=== PATIENT | male | born 1950 | race Caucasian/White ===

== ENCOUNTER 2022-11-23 01:49 | Emergency (ER) | payer OTHER ==
[2022-11-23 01:56] VITALS: PULSE 99; RESP 18; TEMP 97.7
[2022-11-23 02:39] LABS: Basophils # (A) 0.1 k/uL (0-0.2); Basophils % (A) 1 %; Eosinophils # (A) 0.4 k/uL (0-0.7); Eosinophils % (A) 6 %; HCT 46.3 % (39.0-53.0); HGB 15.7 gm/dL (13.0-17.5); Lymphocytes # (A) 2.2 k/uL (1.0-4.8); Lymphocytes % (A) 31 %; MCH 29.1 pg (25.0-35.0); MCHC 33.9 g/dL (31.0-37.0); MCV 85.8 fL (80.0-100.0); Mean Platelet Volume 7.1; Monocytes # (A) 0.4 k/uL (0-1.0); Monocytes % (A) 6 %; Neutrophils # (A) 3.9 k/uL (1.3-7.7); Neutrophils % (A) 53 %; Platelet Count 344 k/uL (150-450); RBC 5.39 m/uL (4.30-5.90); RDW 13.4 % (11.5-15.5); WBC 7.3 k/uL (3.8-10.6)
[2022-11-23 02:51] LABS: Albumin 3.9 g/dL (3.5-5.0); Calcium 9.1 mg/dL (8.4-10.2); Potassium 4.6 mmol/L (3.5-5.1); Total Bilirubin 0.8 mg/dL (0.2-1.3); Total Protein 6.7 g/dL (6.3-8.2)
[2022-11-23] MEDS ORDERED: hydrALAZINE HCL 20 MG/ML 1 ML VIAL IVP STA (03:06)
--- NOTE | 2022-11-23 03:24 | ED ---
General Adult HPI - General Chief complaint: Recheck/Abnormal Lab/Rx Stated complaint: HTN Time Seen by Provider: 11/23/22 02:45 Source: patient, RN notes reviewed, old records reviewed Mode of arrival: wheelchair - History of Present Illness Initial comments: Patient is a 72-year-old male who presents emergency Department complaining of hypertension, bilateral upper extremity paresthesias. Patient has been dealing with hypertension since he was seen in the ER last week. Denies any headache, chest pain. Denies any abdominal pain, nausea, vomiting. Denies any weakness. History of prior blood clot. No longer on blood thinners. Was seen last week for similar complaints and ultimately discharged home. As follow with PCP, rug inspector, vascular surgeon this week with mixed results in terms of whether he has hypertension or not. However woke up this evening with his paresthesias in bilateral upper extremities. They checked his blood pressure was elevated. Presents for further evaluation at this time. Currently resting comfortable in bed with no obvious complaints. - Related Data Home Medications Medication Instructions Recorded Confirmed [place]-3 Fatty Acids/Fish Oil [Fish 2 each PO DAILY 07/09/17 07/09/17 Oil 1,000 mg Softgel] Omeprazole [PriLOSEC] 20 mg PO AC-BRKFST 07/09/17 07/09/17 Previous Rx's Medication Instructions Recorded amLODIPine [Norvasc] 2.5 mg PO DAILY 7 Days #7 tablet 11/23/22 Allergies Allergy/AdvReac Type Severity Reaction Status Date / Time Penicillins Allergy Rash/Hives Verified 11/23/22 01:57 Review of Systems ROS Statement: Those systems with pertinent positive or pertinent negative responses have been documented in the HPI. Review of Systems: CONST: Denies fever EYES: Denies blurry vision ENT: Denies nasal congestion C/V: Denies Chest pain RESP: Denies shortness of breath GI: Denies abdominal pain : Denies dysuria SKIN: Denies rash. MSK: Denies joint pain. NEURO: Denies headache ROS Other: All systems not noted in ROS Statement are negative. Past Medical History Past Medical History: Cancer, GERD/Reflux Additional Past Medical History / Comment(s): cancer prostate 2011, recent bloody stool History of Any Multi-Drug Resistant Organisms: None Reported Past Surgical History: Appendectomy, Joint Replacement, Orthopedic Surgery, Prostate Surgery, Tonsillectomy Additional Past Surgical History / Comment(s): arthroscopy knee, deepti knees replaced, prostatectomy Past Anesthesia/Blood Transfusion Reactions: Previous Problems w/ Anesthesia, Postoperative Nausea & Vomiting (PONV) Additional Past Anesthesia/Blood Transfusion Reaction / Comment(s): O2 sats. & BP low & went to ICU after prostatectomy, always very slow to wake up, doesn't require much anes. per pt. Past Psychological History: No Psychological Hx Reported Smoking Status: Never smoker Past Alcohol Use History: None Reported Past Drug Use History: None Reported - Past Family History Father Family Medical History: Cancer General Exam - General Exam Comments Initial Comments: General: Appears in no acute distress. HEAD: Normal with no signs of head trauma. EYES: PERRLA, EOMI, conjunctiva normal, no discharge. Pupils 2 mm and equal bilaterally. ENT: Hearing grossly intact, normal oropharynx. RESPIRATORY: Clear breath sounds bilaterally. No wheezes, rales, or rhonchi. C/V: Regular rate and rhythm. S1 and S2 auscultated, no edema, peripheral pulses 2+ and intact throughout. blood pressures equal in bilateral upper extremities. ABD: Abd is soft, nontender, nondistended EXT: Normal range of motion, no obvious deformity SKIN: No rashes or lesions observed on exposed skin. NEURO: Alert and oriented x 4. Cranial nerves II-XII intact. No focal sensory or strength deficits. GCS of 15. NIH of 0. No reproducible numbness in the upper extremities. Cerebellar function within normal limits as evident by normal finger nose testing and [id number] testing. Course Vital Signs 11/23/22 11/23/22 11/23/22 01:54 03:17 05:00 Temperature 97.7 F Pulse Rate 99 Respiratory 18 Rate Blood Pressure 171/104 162/111 119/86 O2 Sat by Pulse 94 L Oximetry Medical Decision Making - Medical Decision Making Was pt. sent in by a medical professional or institution (, PA, EXTERIOR WORK HELPER, urgent care, hospital, or custodial...) When possible be specific @ -No Did you speak to anyone other than the patient for history (EMS, parent, family, police, friend...)? What history was obtained from this source @ -No Did you review nursing and triage notes (agree or disagree)? Why? @ -I reviewed and agree with nursing and triage notes Were old charts reviewed (outside hosp., previous admission, EMS record, old EKG, old radiological studies, urgent care reports/EKG's, custodial records)? Report findings @ -Review chart from 11/20/2022. Differential Diagnosis (chest pain, altered mental status, abdominal pain women, abdominal pain men, vaginal bleeding, weakness, fever, dyspnea, syncope, headache, dizziness, GI bleed, back pain, seizure, CVA, palpatations, mental health, musculoskeletal)? @ -CVA, aortic dissection, electrolyte abnormalities, symptomatic hypertension. This was is not all inclusive. EKG interpreted by me (3pts min.). @ -As above X-rays interpreted by me (1pt min.). @ -None done CT interpreted by me (1pt min.). @ -CT brain shows no acute intracranial process. CT angiogram reveals no obvious aortic catastrophe. No other obvious process. U/S interpreted by me (1pt. min.). @ -None done What testing was considered but not performed or refused? (CT, X-rays, U/S, labs)? Why? @ -None What meds were considered but not given or refused? Why? @ -None Did you discuss the management of the patient with other professionals (professionals i.e. , PA, EXTERIOR WORK HELPER, lab, RT, psych nurse, health care social worker, enterprise systems architect, teacher, armored vehicle officer, patient case manager)? Give summary @ -No Was smoking cessation discussed for >3mins.? @ -No Was critical care preformed (if so, how long)? @ -No Were there social determinants of health that impacted care today? How? (Homelessness, low income, unemployed, alcoholism, drug addiction, t ransportation, low edu. Level, literacy, decrease access to med. care, correction, rehab)? @ -No Was there de-escalation of care discussed even if they declined (Discuss DNR or withdrawal of care, Hospice)? DNR status @ -No What co-morbidities impacted this encounter? (DM, HTN, Smoking, COPD, CAD, Cancer, CVA, ARF, Chemo, Hep., AIDS, mental health diagnosis, sleep apnea, morbid obesity)? @ -None Was patient admitted / discharged? Hospital course, mention meds given and route, prescriptions, significant lab abnormalities, going to OR and other pertinent info. @ -Based on the patient's presentation and physical exam, I do believe that symptoms are likely secondary to possible hypertension but cannot rule out other etiology at this time. We will obtain basic labs. Due to his bilateral upper extremity sensations, as well as intermittent pain in bilateral lower e xtremities we will obtain CT angiogram. to evaluate the aorta as this is a repeat visit. he was in agreement this plan. CT will also be obtained of the brain to evaluate for any intracranial abnormality. Patient was in agreement with this plan. He will receive a dose of IV hydralazine. Vital signs otherwise within acceptable limits. Exam is unremarkable. Patient's laboratory studies are relatively unremarkable. Patient's CT imaging was negative for any acute process. Repeat blood pressures were within acceptable limits at 119/86. He is feeling improved at this time. Mild paresthesia still present. We discussed his workup. I would like to discharge him home at this time with close follow-up with his PCP. I will provide him with a low dose Norvasc prescription for the next week, with instructions to start taking it tomorrow if blood pressure was elevated. He said multiple elevated blood pressures at home on a daily basis including multiple elevated blood pressures here in the department requiring treatment and therefore we will initiate treatment at this time. He was in agreement with this plan. Strict return precautions discussed. I will provide the patient with a prescription for Norvasc. I instructed the patient to follow up with their PCP in the next 1-3 days. I explained that the patient should return to the emergency department if they experience any worsening symptoms. Strict return precautions were discussed with the patient. The patient expressed understanding of these instructions. I answered all questions that the patient had. The patient was discharged home in good condition with their prescriptions and follow up information. Undiagnosed new problem with uncertain prognosis? @ -No Drug Therapy requiring intensive monitoring for toxicity (Heparin, Nitro, Insuli n, Cardizem)? @ -No Were any procedures done? @ -No Diagnosis/symptom? @ -Hypertension Acute, or Chronic, or Acute on Chronic? @ -Acute Uncomplicated (without systemic symptoms) or Complicated (systemic symptoms)? @ -Uncomplicated Side effects of treatment? @ -none Exacerbation, Progression, or Severe Exacerbation] @ -no Poses a threat to life or bodily function? @ -no Diagnosis/symptom? @ -Paresthesias Acute, or Chronic, or Acute on Chronic? @ -Acute Uncomplicated (without systemic symptoms) or Complicated (systemic symptoms)? @ -Uncomplicated Side effects of treatment? @ -none Exacerbation, Progression, or Severe Exacerbation] @ -no Poses a threat to life or bodily function? @ -no - Lab Data Result diagrams: 11/23/22 02:08 11/23/22 02:08 Lab Results 11/23/22 11/23/22 Range/Units 02:08 02:08 WBC 7.3 (3.8-10.6) k/uL RBC 5.39 (4.30-5.90) m/uL Hgb 15.7 (13.0-17.5) gm/dL Hct 46.3 (39.0-53.0) % MCV 85.8 (80.0-100.0) fL MCH 29.1 (25.0-35.0) pg MCHC 33.9 (31.0-37.0) g/dL RDW 13.4 (11.5-15.5) % Plt Count 344 (150-450) k/uL MPV 7.1 Neutrophils % 53 % Lymphocytes % 31 % Monocytes % 6 % Eosinophils % 6 % Basophils % 1 % Neutrophils # 3.9 (1.3-7.7) k/uL Lymphocytes # 2.2 (1.0-4.8) k/uL Monocytes # 0.4 (0-1.0) k/uL Eosinophils # 0.4 (0-0.7) k/uL Basophils # 0.1 (0-0.2) k/uL Sodium 139 (137-145) mmol/L Potassium 4.6 (3.5-5.1) mmol/L Chloride 104 (98-107) mmol/L Carbon Dioxide 24 (22-30) mmol/L Anion Gap 11 mmol/L BUN 25 H (9-20) mg/dL Creatinine 0.97 (0.66-1.25) mg/dL Est GFR (CKD-EPI)AfAm 89 (>60 ml/min/1.73 sqM) Est GFR (CKD-EPI)NonAf 77 (>60 ml/min/1.73 sqM) Glucose 96 (74-99) mg/dL Calcium 9.1 (8.4-10.2) mg/dL Total Bilirubin 0.8 (0.2-1.3) mg/dL AST 35 (17-59) U/L ALT 38 (4-49) U/L Alkaline Phosphatase 156 H (38-126) U/L Total Protein 6.7 (6.3-8.2) g/dL Albumin 3.9 (3.5-5.0) g/dL - EKG Data -: EKG Interpreted by Me EKG Comments: 12-lead Electrocardiogram Interpretation Note EKG was reviewed and interpreted by myself. 12-lead ECG performed at 0201 is interpreted by me as revealing normal sinus rhythm at a rate of 93 beats per minute. Left axis deviation. HI interval is 166 ms, QRS durations 106 ms, QTc is 419 ms.. There were no ST or T wave abnormalities to suggest myocardial ischemia or injury. R wave progression across the precordium was delayed. By my interpretation this EKG is non-diagnostic for acute ischemia. When compared with EKG from 11/20/2022, no significant change. Disposition Clinical Impression: Hypertension, Paresthesia Disposition: HOME SELF-CARE Condition: Good Prescriptions: amLODIPine [Norvasc] 2.5 mg PO DAILY 7 Days #7 tablet Is patient prescribed a controlled substance at d/c from ED?: No Referrals: Anjum Dubon MD [Primary Care Provider] - 1-2 days Time of Disposition: 05:42
[2022-11-23 05:12] VITALS: BP 119/86
--- NOTE | 2022-11-23 05:31 | CT ---
EXAMINATION TYPE: CT brain wo con DATE OF EXAM: 11/23/2022 HISTORY: Upper extremity paresthesia CT DLP: 1198 mGycm. Automated Exposure Control for Dose Reduction was Utilized. TECHNIQUE: CT scan of the head is performed without contrast. COMPARISON: None. FINDINGS: There is no acute intracranial hemorrhage or midline shift identified. There is mild to m oderate diffuse ventricular and sulcal prominence consistent with diffuse age-related cerebral atroph y. Baeza-white matter differentiation fairly well preserved. The globes are intact and the visualized sinuses are clear. IMPRESSION: No acute intracranial hemorrhage or midline shift. There is mild to moderate diffuse ce rebral atrophy noted.
--- NOTE | 2022-11-23 05:37 | CT ---
EXAMINATION TYPE: CT angio thor/abd pel aorta DATE OF EXAM: 11/23/2022 COMPARISON: None. HISTORY: History of hypertension presents with upper extremity paresthesia. CT DLP: 1328 mGycm. Automated Exposure Control for Dose Reduction was Utilized. CONTRAST: CTA scan of the thorax, abdomen and pelvis is performed without and with IV Contrast, patient injecte d with 100 mL of Isovue 370. Three-D reconstructed images created on an independent workstation and r [employer]. FINDINGS: VASCULAR: Normal 3 vessel origin from the aortic arch. No significant stenosis. No thoracic aortic an eurysm. Patent celiac artery and SMA without significant stenosis. Patent single renal arteries bilat erally. Patent TIANNA. No AAA. No linear hypodensity to suggest dissection. LUNGS: Dependent atelectasis in the bilateral lower lobes. There is no pleural effusion or pneumoth orax seen. The tracheobronchial tree is patent. MEDIASTINUM: There are no greater than 1 cm hilar or mediastinal lymph nodes. No cardiomegaly or pe ricardial effusion is seen. LIVER/GB: No significant abnormality is appreciated. PANCREAS: No significant abnormality is seen. SPLEEN: No significant abnormality is seen. ADRENALS: No significant abnormality is seen. KIDNEYS: No significant abnormality is seen. BOWEL: Moderate to large size hiatal hernia. Colonic diverticulosis. No CT evidence for acute diverti culitis. No suspicious small or large bowel dilatation. GENITAL ORGANS: Prostate not seen and may be surgically absent.. LYMPH NODES: No greater than 1cm abdominal or pelvic lymph nodes are appreciated. OSSEOUS STRUCTURES: There is S shaped scoliosis. Multilevel spondylolisthesis with vacuum disc phenom enon and disc space narrowing in the lumbar spine. Multilevel facet arthropathy in the lower lumbar s pine. OTHER: Incidental small intramuscular lipoma right anterior thigh axial image 316. IMPRESSION: 1. No aortic aneurysm or dissection. No significant vascular stenosis. No acute findings evident.
== END 2022-11-23 06:05 | disposition home or self-care (01) ==
LOC: EC 01:49
DX: I10 Essential (primary) hypertension (principal); R20.2 Paresthesia of skin; K21.9 Gastro-esophageal reflux disease without esophagitis; Z79.899 Other long term (current) drug therapy; Z88.0 Allergy status to penicillin
CPT/HCPCS: 96374 ×2; 99284 ×2; 36415; 80053; 85025; 70450; 71275; 74174; J0360; Q9967; 93005

== ENCOUNTER 2023-03-29 09:03 | Day surgery (SDC) | payer OTHER ==
[2023-03-27 13:20] VITALS: BMI 32.6
[2023-03-29] MEDS ORDERED: LACTATED RINGERS 1,000 ML IV ONE (09:22)
[2023-03-29] MEDS ORDERED: LIDOCAINE 1% (10MG/ML) FOR IV START INTRADERMA PRN (09:33)
[2023-03-29] MEDS ORDERED: LACTATED RINGERS 1,000 ML IV SCH (09:33)
[2023-03-29 09:51] VITALS: RESP 16
[2023-03-29] MEDS ORDERED: ONDANSETRON 4 MG/2 ML VIAL IVP ONE (09:51)
[2023-03-29] MEDS ORDERED: ONDANSETRON 4 MG/2 ML VIAL ONE (09:53)
[2023-03-29] MEDS ORDERED: PROPOFOL 10 MG/ML 20 ML VIAL IV ONE (10:19)
--- NOTE | 2023-03-29 10:32 | P.PCN ---
Date of Procedure: 03/29/23 Procedure(s) Performed: BRIEF HISTORY: Patient is a 72-year-old pleasant white male scheduled for an elective colonoscopy as a part of evaluation of prior history of colon polyps. Last colonoscopy was 6 years ago and was noted to have a tubular adenoma. PROCEDURE PERFORMED: Colonoscopy. PREOPERATIVE DIAGNOSIS: History of colon polyps. IV sedation per Anesthesia. PROCEDURE: After informed consent was obtained, the patient, was brought into the endoscopy unit. IV sedation was administered by Anesthesia under continuous monitoring. Digital rectal examination was normal. Initially the Olympus CF-160 flexible video colonoscope was then inserted in the rectum, gradually advanced into the cecum without any difficulty. Careful examination was performed as the scope was gradually being withdrawn. Ileocecal valve and the appendiceal orifice were visualized and appeared normal. Prep was excellent. Mucosa of the cecum, ascending colon, transverse colon, descending colon, sigmoid colon, and rectum appeared normal. Moderate sigmoid diverticulosis Retroflexion was performed in the rectum and no lesions were seen. The patient tolerated the procedure well. IMPRESSION: Normal-appearing colon from rectum to cecum with no evidence of colorectal neoplasia . Moderate sigmoid diverticulosis. RECOMMENDATIONS: Findings of this examination were discussed with the patient as well as his family.. Recommended repeat colonoscopy at age 78.
[2023-03-29 15:28] VITALS: BP 116/79; PULSE 72
== END 2023-03-29 11:11 | disposition home or self-care (01) ==
LOC: ORWHC2ENDO 09:03
PROVIDERS: ATTEND Internal Medicine Gastroenterology
DX: Z12.11 Encounter for screening for malignant neoplasm of colon (principal); K57.30 Diverticulosis of large intestine without perforation or abscess without bleeding; K21.9 Gastro-esophageal reflux disease without esophagitis; I10 Essential (primary) hypertension; Z86.010 Personal history of colon polyps; Z88.0 Allergy status to penicillin; Z79.899 Other long term (current) drug therapy
CPT/HCPCS: 45378; J2405; J2704